=== PATIENT | male | born 1990 | race Caucasian/White ===

== ENCOUNTER → 2019-12-03 | Outpatient (CLI) | payer BC ==
--- NOTE | 2019-12-03 11:38 | RADIOLOGY REPORT (SQ) ---
EXAM DESCRIPTION: MRI LUMBAR SPINE WITHOUT IMAGES COMPLETED DATE/TIME: 12/03/2019 11:25 am REASON FOR STUDY: M54.5 LOW BACK PAIN M54.5 LOW BACK PAIN COMPARISON: None. TECHNIQUE: Sagittal and Axial imaging includes T1, T2, STIR and gradient echo sequences. Coronal T2/ HASTE imaging. LIMITATIONS: None. FINDINGS: VISUALIZED UPPER ABDOMEN: Limited evaluation. No acute or suspicious findings suggested. SEGMENTATION: No transitional anatomy. The lowest well-developed disc space is labeled L5-S1. ALIGNMENT: Anatomic. VERTEBRAE: Intact. BONE MARROW: Normal. No marrow replacement or reactive changes. DISC SIGNAL: Loss of normal height and signal at L5-S1. POSTERIOR ELEMENTS: Generally intact. No pars defect evident. HARDWARE: None in the spine. CORD AND CONUS: Normal in size and signal intensity. Conus at the appropriate level. SOFT TISSUES: No aortic aneurysm seen. No bulky retroperitoneal adenopathy or mass. No paraspinal mas s or fluid. L1-L2: No significant spinal stenosis or exit foraminal stenosis. L2-L3: No significant spinal stenosis or exit foraminal stenosis. L3-L4: No significant spinal stenosis or exit foraminal stenosis. L4-L5: No significant spinal stenosis or exit foraminal stenosis. L5-S1: Focal subligamentous disc protrusion at L5-S1. No definite nerve root impingement. LOWER THORACIC: Incompletely imaged. No stenosis seen. SACRUM: Visualized upper sacrum intact. OTHER: No other significant findings. IMPRESSION: Subligamentous central disc protrusion at L5-S1 along with disc desiccation. No other s ignificant findings. TECHNICAL DOCUMENTATION: JOB ID: [id number] 2010 [employer]- All Rights Reserved Reading location - IP/workstation name: [email or web address]
== END ==
LOC: RAD 10:45 → EDSEX 11:15
PROVIDERS: ATTEND Physician Assistant
DX: M51.27 Other intervertebral disc displacement, lumbosacral region (principal)
CPT/HCPCS: 72148

== ENCOUNTER → 2019-12-17 | Outpatient (CLI) | payer BC, MEDICAID ==
--- NOTE | 2019-12-17 13:12 | RADIOLOGY REPORT (SQ) ---
EXAM DESCRIPTION: U/S ABDOMEN LIMITED W/O DOP IMAGES COMPLETED DATE/TIME: 12/17/2019 9:28 am REASON FOR STUDY: RUQ PAIN R10.11 RIGHT UPPER QUADRANT PAIN COMPARISON: None. TECHNIQUE: Dynamic and static grayscale images acquired of the abdomen and recorded on PACS. Additio nal selected color Doppler and spectral images recorded. LIMITATIONS: Limited visualization. Poor acoustical window FINDINGS: PANCREAS: No masses. Visualized pancreatic duct normal caliber. LIVER: Normal size Mild fatty infiltration. No focal masses. LIVER VASCULATURE: Normal directional flow of the main portal vein and hepatic veins. GALLBLADDER: Sludge. No stones. Normal wall thickness. No pericholecystic fluid. ULTRASOUND-DETECTED LUU'S SIGN: Negative. INTRAHEPATIC DUCTS AND COMMON DUCT: CBD and intrahepatic ducts normal caliber. No filling defects. INFERIOR VENA CAVA: Normal flow. AORTA: No aneurysm. RIGHT KIDNEY: Normal size. Normal echogenicity. No solid or suspicious masses. No hydronephros is. No calcifications. PERITONEAL AND RIGHT PLEURAL SPACE: No ascites or effusions. OTHER: No other significant findings. IMPRESSION: Gallbladder sludge. No evidence of cholecystitis. TECHNICAL DOCUMENTATION: JOB ID: [id number] 2010 [employer]- All Rights Reserved Reading location - IP/workstation name: [email or web address]
--- NOTE | 2019-12-17 13:43 | RADIOLOGY REPORT (SQ) ---
EXAM DESCRIPTION: NM HIDA SCAN WITH CCK IMAGES COMPLETED DATE/TIME: 12/17/2019 12:59 pm REASON FOR STUDY: RUQ PAIN R10.11 RIGHT UPPER QUADRANT PAIN COMPARISON: None. RADIONUCLIDE AND DOSE: DOSAGE RADIONUCLIDE: 5.46 millicuries Tc99m Mebrofenin. DOSAGE CCK: 2.1 micrograms. DOSAGE MORPHINE: Not required. The route of agent administration: Intravenous TECHNIQUE: Serial imaging right upper quadrant up to 60 minutes following injection of radionuclide. CCK injected after gallbladder visualized. LIMITATIONS: None. FINDINGS: LIVER: Normal visualization without areas of photopenia. INTRA AND EXTRAHEPATIC BILE DUCTS: Normal accumulation of activity. GALLBLADDER: Normal visualization. Calculated Ejection Fraction of 15%. Below the normal value of 35 % or greater. PHYSICAL RESPONSE: Patients presenting complaint was not reproduced. OTHER: No other significant finding. IMPRESSION: Gallbladder dyskinesia with an ejection fraction of 15%. The patient's clinical symptom s however were not reproduced with CCK administration. TECHNICAL DOCUMENTATION: JOB ID: [id number] 2010 [employer]- All Rights Reserved Reading location - IP/workstation name: [email or web address]
--- OUTSIDE RECORDS SUMMARY | 2019-12-18 18:15 | XMS REPORT ---
:1990 Author Organization [facility] [place] [facility] [place] [address] [place] [address] Care Team Providers Name Role Phone Michael PT, Mert Attending Clinician Unavailable Siri Bain Attending Clinician Unavailable Nghia PTMorenita Attending Clinician Unavailable Allergies, Adverse Reactions, Alerts This patient has no known allergies or adverse reactions. Medications This patient has no known medications. Problems This patient has no known problems. Procedures Procedure Date / Time Performed Performing Clinician Juan bradley THERAPEUTIC EXERCISES 2019-12-04 10:30:00 NEUROMUSCULAR REEDUCATION 2019-12-04 10:30:00 MANUAL THERAPY 2019-12-04 10:30:00 NEUROMUSCULAR REEDUCATION 2019-12-02 11:00:00 THERAPEUTIC EXERCISES 2019-12-02 11:00:00 MANUAL THERAPY 2019-12-02 11:00:00 OFFICE/OUTPATIENT VISIT EST 2019-12-01 13:15:00 NEUROMUSCULAR REEDUCATION 2019-11-27 09:30:00 THERAPEUTIC EXERCISES 2019-11-27 09:30:00 THERAPEUTIC ACTIVITIES 2019-11-27 09:30:00 MANUAL THERAPY 2019-11-27 09:30:00 MANUAL THERAPY 2019-11-25 11:00:00 THERAPEUTIC EXERCISES 2019-11-25 11:00:00 NEUROMUSCULAR REEDUCATION 2019-11-25 11:00:00 NEUROMUSCULAR REEDUCATION 2019-11-21 11:00:00 THERAPEUTIC EXERCISES 2019-11-21 11:00:00 MANUAL THERAPY 2019-11-21 11:00:00 THERAPEUTIC EXERCISES 2019-11-19 13:00:00 NEUROMUSCULAR REEDUCATION 2019-11-19 13:00:00 MANUAL THERAPY 2019-11-19 13:00:00 THERAPEUTIC EXERCISES 2019-11-11 10:00:00 MANUAL THERAPY 2019-11-11 10:00:00 MANUAL THERAPY 2019-10-31 12:00:00 THERAPEUTIC EXERCISES 2019-10-31 12:00:00 THERAPEUTIC EXERCISES 2019-10-27 16:00:00 THERAPEUTIC ACTIVITIES 2019-10-27 16:00:00 PT Evaluation, High Complexity 2019-10-27 16:00:00 Results This patient has no known results. Assessments Condition Name Status Diagnosis Date Treating Clinici an Lesion of sciatic nerve, unspecified lower Active limb Low back pain Active Stiffness of left hip, not elsewhere Active classified Stiffness of right hip, not elsewhere Active classified Lesion of sciatic nerve, unspecified lower Active limb Low back pain Active Stiffness of left hip, not elsewhere Active classified Stiffness of right hip, not elsewhere Active classified Eosinophilic esophagitis Active Gastro-esophageal reflux disease with Active esophagitis, without bleeding Chronic idiopathic constipation Active Right upper quadrant pain Active Lesion of sciatic nerve, unspecified lower Active limb Low back pain Active Stiffness of left hip, not elsewhere Active classified Stiffness of right hip, not elsewhere Active classified Lesion of sciatic nerve, unspecified lower Active limb Low back pain Active Stiffness of left hip, not elsewhere Active classified Stiffness of right hip, not elsewhere Active classified Lesion of sciatic nerve, unspecified lower Active limb Low back pain Active Stiffness of left hip, not elsewhere Active classified Stiffness of right hip, not elsewhere Active classified Lesion of sciatic nerve, unspecified lower Active limb Low back pain Active Stiffness of left hip, not elsewhere Active classified Stiffness of right hip, not elsewhere Active classified Lesion of sciatic nerve, unspecified lower Active limb Low back pain Active Stiffness of left hip, not elsewhere Active classified Stiffness of right hip, not elsewhere Active classified Lesion of sciatic nerve, unspecified lower Active limb Low back pain Active Stiffness of left hip, not elsewhere Active classified Stiffness of right hip, not elsewhere Active classified Lesion of sciatic nerve, unspecified lower Active limb Low back pain Active Stiffness of left hip, not elsewhere Active classified Stiffness of right hip, not elsewhere Active classified Encounters Start End Encounter Admission Attending Care Care Encounter Date/Time Date/Time Type Type Clinicians Facility Department ID 2019-12-04 2019-12-04 Outpatient Michael PT, [facility] [id number] 10:30:00 10:30:00 [facility] [id number] \T\ Sports [id number] [facility] [id number] 2019-12-02 2019-12-02 Outpatient Michael PT, [facility] [id number] 11:00:00 11:00:00 [facility] [id number] \T\ Sports [id number] Medicine [id number] 2019-12-01 2019-12-01 Outpatient Odell [facility] 7 [id number] 13:15:00 13:15:00 [facility] [id number] B-B and [id number] Multispecialty [id number] Clini 2019-11-27 2019-11-27 Outpatient Michael PT, [facility] [id number] 09:30:00 09:30:00 [facility] [id number] \T\ Sports [id number] Medicine [id number] 2019-11-25 2019-11-25 Outpatient [place] PT, [facility] [id number] 11:00:00 11:00:00 [facility] [id number] \T\ Sports [id number] Medicine [id number] 2019-11-21 2019-11-21 Outpatient [place] PT, [facility] [id number] 11:00:00 11:00:00 [facility] [id number] \T\ Sports [id number] Medicine [id number] 2019-11-19 2019-11-19 Outpatient [place] PT, [facility] [id number] 13:00:00 13:00:00 [facility] [id number] \T\ Sports [id number] Medicine [id number] 2019-11-11 2019-11-11 Outpatient Nghia PT, [facility] [id number] 10:00:00 10:00:00 [facility] [id number] \T\ Sports [id number] Medicine [id number] 2019-10-31 2019-10-31 Outpatient Nghia PT, [facility] 6F7 [id number] 12:00:00 12:00:00 [facility] [id number] \T\ Sports [id number] Medicine [id number] 2019-10-27 2019-10-27 Outpatient Nghia PT, [facility] 4F4 [id number] 16:00:00 16:00:00 [facility] [id number] \T\ Sports [id number] Medicine [id number] Social History This patient has no known social history. Vital Signs This patient has no known vital signs.
== END ==
LOC: RAD 09:02
PROVIDERS: ATTEND Nurse Practitioner Family
DX: R10.11 Right upper quadrant pain (principal); K82.8 Other specified diseases of gallbladder
CPT/HCPCS: 76705; 78227; J2805; A9537; Q9969

== ENCOUNTER → 2020-01-29 | Outpatient (CLI) | payer MEDICAID ==
--- NOTE | 2020-02-01 14:55 | NEURO WORKBENCH EEG REPORT ---
EEG Report Patient: Saleem Meza ID: [id number] Referring Doctor: Kenneth Trent MD DOS: 01/29/2020 Medications: none History This is a 29 year old right handed male with a history of hyperglycemia and an episode of arms, eyes, legs not moving while washing his hands. This EEG was requested for possible seizure. EEG Interpretation This EEG was recorded in the awake and drowsy states. The awake EEG is characterized by a well-organized background with a well-developed and reactive posterior dominant rhythm of 11 Hz. The remainder of the background was characterized by a combination of alpha with some beta frequencies. Drowsiness was characterized by slowing of the background rhythms. Photic stimulation resulted in a good driving response. Hyperventilation resulted in mild generalized background slowing. There were no epileptiform abnormalities. The EKG showed a heart rhythm in the ~40s-50s with periods of an irregular rhythm. EEG Classification * EKG bradycardia, irregular rhythm EEG Impression This EEG is within normal limits for age. The EKG showed a bradycardia and irregular rhythm that may require further investigation. INTERPRETING NEUROLOGIST: Joann Guerin MD, FRCPC Board Certified in Neurology, with special qualification in Child Neurology, and in Clinical Neurophysiology [facility]
== END ==
LOC: NEURO 07:57
PROVIDERS: ATTEND Pediatrics
DX: R56.9 Unspecified convulsions (principal); R73.9 Hyperglycemia, unspecified
CPT/HCPCS: 95819

== ENCOUNTER 2020-02-10 07:10 | Day surgery (SDC) | payer BC, MEDICAID ==
[~2020-02-10 07:10] MED LIST: CEFAZOLIN 2 GM/D5W RTU 2 GM/50 ML RTUPB IV ONE; CEFAZOLIN 2 GM/D5W RTU 2 GM/50 ML RTUPB IV PRN; LACTATED RINGERS 1000 ML IV PRN; LIDOCAINE 0.5% INJ-PF (5 MG/ML) 50 ML SDV SUBCUT PRN; METRONIDAZOLE 500 MG/NS RTU 500 MG/100 ML RTUPB IV ONE; METRONIDAZOLE 500 MG/NS RTU 500 MG/100 ML RTUPB IV PRN
[2020-02-10] MEDS ORDERED: MIDAZOLAM 2 MG/2 ML INJ ONE (08:52)
[2020-02-10] MEDS ORDERED: FENTANYL CITRATE INJ/PF 100 MCG/2 ML AMPUL ONE (08:52)
[2020-02-10] MEDS ORDERED: EPHEDRINE SULFATE INJ 50 MG/1 ML AMPULE ONE (08:53)
[2020-02-10] MEDS ORDERED: PROPOFOL INJ 200 MG/20 ML VIAL IV ONE (08:53)
[2020-02-10] MEDS ORDERED: BUPIVACAINE INJ/PF LIPOSOME/PF 266 MG/20 ML SDV ONE (09:03)
[2020-02-10] MEDS ORDERED: DIPHENHYDRAMINE HCL 50 MG/ML VIAL IV PRN (09:41)
[2020-02-10] MEDS ORDERED: FENTANYL CITRATE INJ/PF 100 MCG/2 ML AMPUL IV PRN ×3 (09:41)
[2020-02-10] MEDS ORDERED: PROMETHAZINE HCL INJ 25 MG/1 ML VIAL IV PRN ×2 (09:41)
[2020-02-10] MEDS ORDERED: MEPERIDINE HCL/PF INJ 25 MG/1 ML DISP.SYRIN IV PRN (09:41)
[2020-02-10] MEDS ORDERED: SUGAMMADEX SODIUM 200 MG/2 ML SDV IV ONE (09:50)
--- NOTE | 2020-02-10 10:21 | Operative Report ---
Nonrecallable Operative Report DATE OF SURGERY: 02/10/20 PREOPERATIVE DIAGNOSIS: Biliary dyskinesia chronic cholecystitis POSTOPERATIVE DIAGNOSIS: Same OPERATION: Laparoscopic cholecystectomy SURGEON: STEVEN NAVARRO CHLORINATOR: WILFRID SILVER ANESTHESIA: GA TISSUE REMOVED OR ALTERED: Gallbladder COMPLICATIONS: None ESTIMATED BLOOD LOSS: 10 cc INTRAOPERATIVE FINDINGS: See note PROCEDURE: Laparoscopic cholecystectomy 10 cc after obtaining informed consent, the patient was taken to the operating room. General Anesthesia was induced; the arms were extended, and the abdomen was exposed, and prepped and draped in a sterile fashion. Instrumentation was set up for laparoscopic cholecystectomy. Surgical plan and surgical timeout were conducted. A vertical incision was made above the umbilicus, and a verres needle was inserted uneventfully into the peritoneal cavity. Pneumoperitoneum was established. The verres needle was removed and a millimeter trocar was inserted and a 10 mm laparoscope was inserted. Visualization of the peritoneal cavity confirmed safe uneventful entry. Under direct visualization 3 additional 5 mm ports were established, one in the subxiphoid position and second in the subcostal position. Visualization of the hepatobiliary anatomy revealed no anatomic variations. A grasper was placed on the fundus of the gallbladder and the gallbladder is elevated over the right surface of the liver; a second grasper was used to grasp the infundibulum of the gallbladder. The neck of the gallbladder and junction with the cystic duct was dissected out. The Cystic artery was in its usual location medial and cephalad to the cystic duct. The cystic artery was surrounded with a right angle clamp, clipped twice proximally and divided with laparoscopic scissors. We now opened the triangle of Calot by dividing the peritoneal reflection on both the medial and lateral sides of the cystic duct infundibular junction. The critical view was obtained. We now milked the cystic duct of any possible stones, clipped the cystic duct approximately 2 times once distally and divided with scissors. The gallbladder was now removed from the undersurface of the liver using hook cautery dissection. Graspers were repositioned and the gallbladder was removed uneventfully from the abdominal cavity through the super umbilical port site incision. The specimen was examined, then passed off to pathology for permanent analysis. We returned to the peritoneal cavity check for bleeding, and evidence of bile leak, and there was none. We Confirmed satisfactory placement of clips on cystic duct and cystic artery were secured . At this point we felt the operation was complete. The subcutaneous tissue was then anesthetized with quarter percent Marcaine Sponge and needle counts are correct. All ports removed under direct visualization pneumoperitoneum evacuated, and 5 mm port wounds closed with 3-0 Vicryl suture, benzoin and Steri-Strips. The patient was extubated, and taken to the recovery room in stable condition. JENNA Vallecillo was present for the entire procedure help with wound retraction wound closure
--- NOTE | 2020-02-10 10:24 | Discharge Summary ---
Discharge Summary (SDC) - Discharge Final Diagnosis: Cholecystitis biliary dyskinesia Date of Surgery: 02/10/20 Discharge Date: 02/10/20 Condition: Good Forms: ASU Anesthesia D/C Instruction, Discharge POC-Surgical Service Treatment or Instructions: DIET TOLERATED TAKE YOUR MEDICATIONS DIRECTED FOLLOW UP WITH YOUR MD SCHEDULED LOOK FOR SIGNS OF INFECTION DESCRIBED IN YOUR DISCHARGE PAPERWORK Prescriptions: Hydrocodone/Acetaminophen [[place] 10-325 mg Tablet] 1 tab PO Q6HP PRN #10 tablet PRN Reason: Referrals: STEVEN TOVAR MD [ACTIVE STAFF] - 02/23/20 9:45 am Discharge Diet: As Tolerated Discharge Activity: No Lifting Over 10 Pounds Report the Following to Your Physician Immediately: Shortness of Breath, Nausea, Vomiting, Unusual Bleeding
[2020-02-10] MEDS ORDERED: HYDROMORPHONE HCL INJ/PF 2 MG/ML AMPULE ONE (10:26)
[2020-02-10] MEDS: HYDROMORPHONE HCL INJ/PF 2 MG/ML AMPULE IV PRN ×2 (10:27→10:39)
[2020-02-10] MEDS ORDERED: OXYCODONE-ACETAMINOPHEN 5-325 MG TABLET ONE (11:25)
[2020-02-10] MEDS ORDERED: KETOROLAC TROMETHAMINE 60 MG/2 ML SDV ONE (12:10)
[2020-02-10] MEDS ORDERED: ROCURONIUM BROMIDE INJ 50 MG/5 ML VIAL IV ONE (12:10)
[2020-02-10] MEDS ORDERED: ONDANSETRON HCL INJ/PF 4 MG/2 ML SDV ONE (12:10)
[2020-02-10] MEDS ORDERED: LIDOCAINE 2% INJ-PF (20 MG/ML) 2 ML AMPUL ONE (12:10)
[2020-02-10] MEDS ORDERED: DEXAMETHASONE SOD PHOSPHATE INJ 4 MG/1 ML VIAL ONE (12:10)
[2020-02-10] MEDS ORDERED: GLYCOPYRROLATE 1 MG/5 ML VIAL ONE (12:10)
[2020-02-10] MEDS ORDERED: SUCCINYLCHOLINE CHLORIDE INJ 200 MG/10 ML VIAL ONE (12:10)
[2020-02-10] MEDS ORDERED: OXYCODONE-ACETAMINOPHEN 5-325 MG TABLET PO ONE (13:00)
[2020-02-10 13:07] VITALS: BP 125/63
== END 2020-02-10 12:30 | disposition home or self-care (01) ==
LOC: OROUT 07:10
PROVIDERS: ATTEND Surgery
DX: K81.1 Chronic cholecystitis (principal); E66.9 Obesity, unspecified; Z01.812 Encounter for preprocedural laboratory examination; Z20.828 Contact with and (suspected) exposure to other viral communicable diseases; Z87.19 Personal history of other diseases of the digestive system
CPT/HCPCS: 47562; 87635; 88304 ×2; J2250; J3490 ×6; J1100; J1885; J3010; J1170; J0330; J2405; J2704; J0690; C9290; C9803

== ENCOUNTER → 2020-03-03 | Outpatient (CLI) | payer MEDICAID ==
--- NOTE | 2020-03-03 17:36 | EKG REPORT ---
SEVERITY:- ABNORMAL ECG - SINUS BRADYCARDIA ALESSANDRO HAN PERICARDITIS : Confirmed by: Evelio Jimenez MD 03-Mar-2020 17:35:09
== END ==
LOC: OD 12:37
PROVIDERS: ATTEND Pediatrics
DX: R94.31 Abnormal electrocardiogram [ECG] [EKG] (principal)
CPT/HCPCS: 93005; 93010